=== PATIENT | female | born 1985 | race Caucasian/White ===

== ENCOUNTER → 2016-09-11 | Outpatient (REF) | payer OTHER ==
[~2016-09-11] MED LIST: /CIPR75TA PO; ACET65TA PO; ALIG4CAP PO; BIOFTAB PO; ENTO3CAP5 PO; FLAG500T PO; HAIRTAB5 PO; KLOR1TAB69 PO; MOBI15TA PO; MULTIVIT PO; POTA25TA4 PO; PROZ10CA OR; SING10TA32 PO; VICO5TAB PO; WELL75TA PO; ZOFR20TA PO; [UNRECOGNIZED DRUG - OTHER] PO
== END | disposition home or self-care (01) ==
LOC: M LAB REF 15:57
PROVIDERS: ATTEND Nurse Practitioner Family
DX: J02.9 Acute pharyngitis, unspecified (principal)

== ENCOUNTER 2016-12-23 15:50 | Emergency (ER) | payer OTHER ==
[~2016-12-23] VITALS: Ht 165.1 cm; Wt 72.6 kg
[2016-12-23] MEDS ORDERED: MAXA5TAB10 PO (16:20)
[2016-12-23] MEDS ORDERED: RANI15TA PO (16:20)
[2016-12-23] MEDS ORDERED: XANA0.25 PO (16:20)
[2016-12-23] MEDS ORDERED: KETOROLAC 30 MG/ML VIAL (J1885) IV ONE (17:00)
[2016-12-23] MEDS ORDERED: ONDANSETRON 4MG/2ML VIAL (J2405) IV ONE (17:00)
[2016-12-23] MEDS ORDERED: NS 1,000 ML IV ONE (17:00)
[2016-12-23 17:39] LABS: BASO % 0.5 % (0.0-1.0); EOS % 0.6 % (0.0-3.0); LARGE UNSTAINED CELL # 0.1 K/mm3 (0.0-0.4); LARGE UNSTAINED CELL % 1.3 % (0.0-4.0); LYMPH # 1.9 K/mm3 (1.5-4.5); LYMPH % 18.7 % (24.0-44.0); MEAN CORPUSCULAR HEMOGLOBIN 30.3 pg (27.0-33.0); MEAN CORPUSCULAR HGB CONC 34.1 g/dl (32.0-36.5); MEAN CORPUSCULAR VOLUME 88.7 fl (80.0-96.0); MONO # 0.5 K/mm3 (0.0-0.8); NEUTROPHILS # 7.1 K/mm3 (1.8-7.7); PLATELET COUNT, AUTOMATED 404 k/mm3 (150-450); WHITE BLOOD COUNT 9.6 K/mm3 (4.0-10.0)
[2016-12-23 17:59] LABS: CONTROL LINE HCG INT CTR LINE PRESENT
[2016-12-23 18:08] LABS: ALBUMIN 4.4 GM/DL (3.2-5.2); ALBUMIN/GLOBULIN RATIO 1.07 (1.00-1.93); ALKALINE PHOSPHATASE 47 U/L (45-117); ALT/SGPT 38 U/L (12-78); ANION GAP 10 MEQ/L (8-16); AST/SGOT 23 U/L (15-37); BILIRUBIN,DIRECT < 0.1 MG/DL (0.0-0.2); BILIRUBIN,TOTAL 0.5 MG/DL (0.2-1.0); BLOOD UREA NITROGEN 18 MG/DL (7-18); CALCIUM LEVEL 9.4 MG/DL (8.5-10.1); CARBON DIOXIDE LEVEL 25 MEQ/L (21-32); CHLORIDE LEVEL 104 MEQ/L (98-107); CREATININE FOR GFR 1.17 MG/DL (0.55-1.02); GLOMERULAR FILTRATION RATE 57.1 (>60); GLUCOSE, FASTING 83 MG/DL (70-105); POTASSIUM SERUM 4.2 MEQ/L (3.5-5.1); SODIUM LEVEL 139 MEQ/L (136-145); TOTAL PROTEIN 8.5 GM/DL (6.4-8.2)
[2016-12-23] MEDS ORDERED: ZOFR20TA PO (18:41)
[2016-12-23 19:03] VITALS: BP 117/71
== END 2016-12-23 19:23 | disposition home or self-care (01) ==
LOC: M ED 19:14
DX: R11.2 Nausea with vomiting, unspecified (principal); R19.7 Diarrhea, unspecified; F41.9 Anxiety disorder, unspecified; K21.9 Gastro-esophageal reflux disease without esophagitis; Z79.899 Other long term (current) drug therapy
CPT/HCPCS: 80048; 80076; 83690; 84703; 85025; 96361; 96374; 96375; 99283; J1885; J2405

== ENCOUNTER → 2017-06-14 | Outpatient (CLI) | payer OTHER ==
[~2017-06-14] MED LIST changes: +MAXA5TAB10 PO; +RANI15TA PO; +XANA0.25 PO
--- NOTE | 2017-06-14 14:16 | REP ---
Clinical: Trauma. Technique: AP, lateral, bilateral oblique views of the right foot. Findings: No obvious acute fracture dislocation. Skeletal structures, joint spaces, and surrounding soft tissues are relatively normal for age. No subcutaneous emphysema or radiodense foreign body. Impression: No obvious acute fracture or dislocation. Signed by Blair Child MD 06/14/2017 02:07 P
== END ==
LOC: M ADAMS 13:56
PROVIDERS: ATTEND Physician Assistant
DX: S90.31XA Contusion of right foot, initial encounter (principal); X58.XXXA Exposure to other specified factors, initial encounter; Y92.89 Other specified places as the place of occurrence of the external cause; Y99.9 Unspecified external cause status; Y93.9 Activity, unspecified

== ENCOUNTER → 2017-08-30 | Outpatient (REF) | payer OTHER ==
[2017-08-30 20:56] LABS: BASO # 0.1 10^3/uL (0.0-0.2); BASO % 0.9 % (0.0-1.0); EOS # 0.3 10^3/uL (0.0-0.50); EOS % 2.3 % (0.0-3.0); HEMATOCRIT 40.8 % (36.0-47.0); HEMOGLOBIN 13.3 g/dl (12.0-16.0); IMMATURE GRANULOCYTE % 0.3 % (0-0); LYMPH # 3.1 10^3/uL (1.5-4.5); LYMPH % 27.5 % (24.0-44.0); MEAN CORPUSCULAR HGB CONC 32.6 g/dl (32.0-36.5); MEAN CORPUSCULAR VOLUME 88.9 fl (80.0-96.0); MONO # 0.7 10^3/uL (0.0-0.8); MONO % 6.2 % (0.0-5.0); NEUTROPHILS # 7.2 10^3/uL (1.8-7.7); NEUTROPHILS % 62.8 % (36.0-66.0); PLATELET COUNT, AUTOMATED 411 10^3/uL (150-450); RED BLOOD COUNT 4.59 10^6/uL (4.00-5.40); RED CELL DISTRIBUTION WIDTH 13.2 % (11.5-14.5); WHITE BLOOD COUNT 11.4 10^3/uL (4.0-10.0)
[2017-08-30 21:22] LABS: ALBUMIN 4.4 GM/DL (3.2-5.2); ALBUMIN/GLOBULIN RATIO 1.16 (1.00-1.93); ALKALINE PHOSPHATASE 57 U/L (45-117); ALT/SGPT 119 U/L (12-78); ANION GAP 9 MEQ/L (8-16); AST/SGOT 43 U/L (7-37); BILIRUBIN,TOTAL 0.3 MG/DL (0.2-1.0); BLOOD UREA NITROGEN 12 MG/DL (7-18); CALCIUM LEVEL 9.2 MG/DL (8.5-10.1); CARBON DIOXIDE LEVEL 27 MEQ/L (21-32); CHLORIDE LEVEL 106 MEQ/L (98-107); CREATININE FOR GFR 0.84 MG/DL (0.55-1.30); GLOMERULAR FILTRATION RATE > 60.0 (>60); GLUCOSE, FASTING 85 MG/DL (70-100); POTASSIUM SERUM 3.9 MEQ/L (3.5-5.1); SODIUM LEVEL 142 MEQ/L (136-145); TOTAL PROTEIN 8.2 GM/DL (6.4-8.2)
== END ==
LOC: M LABDRWAD 10:15
DX: R10.32 Left lower quadrant pain (principal)

== ENCOUNTER → 2017-08-31 | Outpatient (REF) | payer OTHER ==
[2017-08-31 18:07] LABS: AMYLASE 60 U/L (25-115); LIPASE 252 U/L (73-393)
[2017-09-01 11:13] LABS: HEPATITIS B SURFACE ANTIGEN NEGATIVE (NEGATIVE)
[2017-09-01 11:38] LABS: HEPATITIS B CORE ANTIBODY IGM NEGATIVE (NEGATIVE)
[2017-09-01 11:40] LABS: HEPATITIS A ANTIBODY IGM NEGATIVE (NEGATIVE)
== END ==
LOC: M LAB REF 16:46
DX: R10.9 Unspecified abdominal pain (principal); R74.8 Abnormal levels of other serum enzymes

== ENCOUNTER 2018-01-14 16:29 | Inpatient (IN) | payer OTHER ==
[2018-01-14 16:56] LABS: BASO # 0.1 10^3/uL (0.0-0.2); BASO % 0.6 % (0.0-1.0); EOS # 0.3 10^3/uL (0.0-0.50); EOS % 2.9 % (0.0-3.0); HEMATOCRIT 41.3 % (36.0-47.0); HEMOGLOBIN 13.5 g/dl (12.0-15.5); IMMATURE GRANULOCYTE % 0.2 % (0-3.0); LYMPH # 2.7 10^3/uL (1.5-4.5); LYMPH % 23.2 % (24.0-44.0); MEAN CORPUSCULAR HGB CONC 32.7 g/dl (32.0-36.5); MEAN CORPUSCULAR VOLUME 85.5 fl (80.0-96.0); MONO # 0.7 10^3/uL (0.0-0.8); MONO % 6.4 % (0.0-5.0); NEUTROPHILS # 7.7 10^3/uL (1.8-7.7); NEUTROPHILS % 66.7 % (36.0-66.0); PLATELET COUNT, AUTOMATED 412 10^3/uL (150-450); RED BLOOD COUNT 4.83 10^6/uL (4.00-5.40); RED CELL DISTRIBUTION WIDTH 13.2 % (11.5-14.5); WHITE BLOOD COUNT 11.5 10^3/uL (4.0-10.0)
[2018-01-14 17:10] LABS: CONTROL LINE HCG INT CTR LINE PRESENT; HCG, SERUM QUALITATIVE NEGATIVE (NEGATIVE)
[2018-01-14 17:23] LABS: AMPHETAMINES LEVEL URINE NEGATIVE (NEGATIVE); BARBITURATES URINE NEGATIVE (NEGATIVE); BENZODIAZEPINES URINE POSITIVE (NEGATIVE); CANNABINOIDS URINE NEGATIVE (NEGATIVE); COCAINE METABOLITE URINE NEGATIVE (NEGATIVE); METHADONE URINE NEGATIVE (NEGATIVE); OPIATES URINE NEGATIVE (NEGATIVE); PHENCYCLIDINE URINE NEGATIVE (NEGATIVE)
[2018-01-14 17:24] LABS: ALBUMIN 4.3 GM/DL (3.2-5.2); ALKALINE PHOSPHATASE 57 U/L (45-117); ALT/SGPT 28 U/L (12-78); ANION GAP 9 MEQ/L (8-16); AST/SGOT 15 U/L (7-37); BILIRUBIN,DIRECT < 0.1 MG/DL (0.0-0.2); BILIRUBIN,TOTAL 0.2 MG/DL (0.2-1.0); BLOOD UREA NITROGEN 15 MG/DL (7-18); CALCIUM LEVEL 9.6 MG/DL (8.5-10.1); CARBON DIOXIDE LEVEL 25 MEQ/L (21-32); CHLORIDE LEVEL 106 MEQ/L (98-107); CPK CREATINE PHOSPHOKINASE 91 U/L (26-192); CREATININE FOR GFR 1.03 MG/DL (0.55-1.30); ETHYL ALCOHOL (ETHANOL) < 0.003 % (0.000-0.010); GLOMERULAR FILTRATION RATE > 60.0 (>60); GLUCOSE, FASTING 89 MG/DL (70-100); POTASSIUM SERUM 3.8 MEQ/L (3.5-5.1); SALICYLATE LEVEL 2.7 MG/DL (5.0-30.0); SODIUM LEVEL 140 MEQ/L (136-145); TOTAL PROTEIN 8.6 GM/DL (6.4-8.2)
[2018-01-14 17:25] LABS: ACETAMINOPHEN LEVEL < 2.0 UG/ML (10.0-30.0)
[2018-01-14] MEDS: NS 1,000 ML IV (17:30)
[2018-01-15] MEDS ORDERED: MAALOX 30 ML SUSP *UDC PO (00:45)
[2018-01-15] MEDS ORDERED: MOM 30ML SUSPENSION UDC PO (00:45)
[2018-01-15] MEDS: NICOTINE 7 MG/24 HR TRANSDERMAL TD (08:56)
[2018-01-16] MEDS: NICOTINE 7 MG/24 HR TRANSDERMAL TD (09:44)
[2018-01-16] MEDS: SERTRALINE HCL 50 MG TAB PO (11:19)
[2018-01-16 11:28] LABS: BEDSIDE GLUCOSE 90 MG/DL (70-105)
[2018-01-16] MEDS: traZODone 50 MG TAB PO (21:21)
[2018-01-17] MEDS: SERTRALINE HCL 50 MG TAB PO (08:00)
[2018-01-17] MEDS: NICOTINE 7 MG/24 HR TRANSDERMAL TD (08:00)
[2018-01-17] MEDS: ACETAMINOPHEN TAB 650MG DOSE (2X325MG) PO (12:07)
[2018-01-17] MEDS: traZODone 50 MG TAB PO (21:08)
[2018-01-18] MEDS: ACETAMINOPHEN TAB 650MG DOSE (2X325MG) PO (07:03)
[2018-01-18 07:18] LABS: HEMATOCRIT 41.3 % (36.0-47.0); HEMOGLOBIN 13.9 g/dl (12.0-15.5); MEAN CORPUSCULAR HEMOGLOBIN 28.1 pg (27.0-33.0); MEAN CORPUSCULAR HGB CONC 33.7 g/dl (32.0-36.5); MEAN CORPUSCULAR VOLUME 83.4 fl (80.0-96.0); PLATELET COUNT, AUTOMATED 368 10^3/uL (150-450); RED BLOOD COUNT 4.95 10^6/uL (4.00-5.40); RED CELL DISTRIBUTION WIDTH 13.1 % (11.5-14.5); WHITE BLOOD COUNT 8.5 10^3/uL (4.0-10.0)
[2018-01-18] MEDS: SERTRALINE HCL 50 MG TAB PO (08:13)
[2018-01-18] MEDS: NICOTINE 7 MG/24 HR TRANSDERMAL TD (08:14)
== END 2018-01-18 12:15 | disposition home or self-care (01) | DRG 885 ==
LOC: M PSY 23:53 → M ED 16:29 → M ED INP 22:54
DX: F33.2 Major depressive disorder, recurrent severe without psychotic features (principal); N81.4 Uterovaginal prolapse, unspecified; T42.4X2A Poisoning by benzodiazepines, intentional self-harm, initial encounter; Y92.009 Unspecified place in unspecified non-institutional (private) residence as the place of occurrence of the external cause; F17.210 Nicotine dependence, cigarettes, uncomplicated; M51.26 Other intervertebral disc displacement, lumbar region; J30.9 Allergic rhinitis, unspecified; G43.909 Migraine, unspecified, not intractable, without status migrainosus; Z79.899 Other long term (current) drug therapy

== ENCOUNTER 2018-01-27 09:57 | Day surgery (SDC) | payer OTHER ==
[2018-01-27] MEDS ORDERED: LR 1,000 ML IV ×2 (10:00→18:45)
[2018-01-27 10:24] LABS: HEMATOCRIT 38.3 % (36.0-47.0); HEMOGLOBIN 12.8 g/dl (12.0-15.5); MEAN CORPUSCULAR HEMOGLOBIN 28.3 pg (27.0-33.0); MEAN CORPUSCULAR HGB CONC 33.4 g/dl (32.0-36.5); MEAN CORPUSCULAR VOLUME 84.7 fl (80.0-96.0); PLATELET COUNT, AUTOMATED 293 10^3/uL (150-450); RED BLOOD COUNT 4.52 10^6/uL (4.00-5.40); RED CELL DISTRIBUTION WIDTH 13.3 % (11.5-14.5); WHITE BLOOD COUNT 8.3 10^3/uL (4.0-10.0)
[2018-01-27 10:40] LABS: CONTROL LINE HCG INT CTR LINE PRESENT; HCG, SERUM QUALITATIVE NEGATIVE (NEGATIVE)
[2018-01-27] MEDS: PHENAZOPYRIDINE 100 MG TAB PO (13:15)
[2018-01-27] MEDS ORDERED: LIDOCAINE 2% INJ 100 MG/5 ML SDV (FOR ANES.) As Ordered (14:56)
[2018-01-27] MEDS ORDERED: fentaNYL 250 MCG/5 ML INJECTION (J3010) As Ordered (14:56)
[2018-01-27] MEDS ORDERED: MIDAZOLAM INJ 2 MG/2 ML VIAL (J2250) As Ordered (14:57)
[2018-01-27] MEDS ORDERED: dexameTHASONE 4 MG/ML 1ML VIAL (J1100) As Ordered (15:36)
[2018-01-27] MEDS ORDERED: PROPOFOL 200 MG/20 ML VIAL As Ordered (15:36)
[2018-01-27] MEDS ORDERED: ROCURONIUM BROMIDE 50 MG/5 ML VIAL As Ordered ×2 (15:36→17:24)
[2018-01-27] MEDS ORDERED: NEOSTIGMINE 10 MG/10 ML VIAL (J2710) As Ordered (17:46)
[2018-01-27] MEDS ORDERED: GLYCOPYRROLATE INJ 0.2 MG/ML 2 ML VIAL As Ordered (17:46)
[2018-01-27] MEDS: VASOPRESSIN INJ 20 UNITS/ML VIAL As Ordered (18:17)
[2018-01-27] MEDS ORDERED: METOCLOPRAMIDE INJ 10MG/2ML VIAL (J2765) IV (18:45)
[2018-01-27] MEDS ORDERED: fentaNYL 100 MCG/2 ML INJECTION (J3010) IV (18:45)
[2018-01-27] MEDS: MORPHINE 1MG/ML IN 0.9% NACL 100ML IV BAG IV (18:45)
[2018-01-27] MEDS ORDERED: IBUPROFEN 600 MG TAB PO (18:45)
[2018-01-27] MEDS ORDERED: NALBUPHINE HCL 10 MG/ML AMP (J2300) IV (18:45)
[2018-01-27] MEDS ORDERED: EPIDURAL/PCA KEYS XX (18:45)
[2018-01-27] MEDS ORDERED: PERCOCET 5MG/325MG TAB PO (18:45)
[2018-01-27] MEDS ORDERED: NALOXONE INJ 0.4 MG/1 ML VIAL (J2310) IV (18:45)
[2018-01-27] MEDS ORDERED: diphenhydrAMINE INJ 50MG/ML VIAL (J1200) IV (18:45)
[2018-01-27] MEDS: ONDANSETRON 4MG/2ML VIAL (J2405) IV (19:04)
[2018-01-28] MEDS ORDERED: UNRESOLVED CLARIFICATION ENTRY XX (00:01)
[2018-01-28] MEDS: LR 1,000 ML IV (01:06)
[2018-01-28 06:55] LABS: HEMATOCRIT 24.7 % (36.0-47.0); MEAN CORPUSCULAR HEMOGLOBIN 28.7 pg (27.0-33.0); MEAN CORPUSCULAR HGB CONC 33.2 g/dl (32.0-36.5); MEAN CORPUSCULAR VOLUME 86.4 fl (80.0-96.0); PLATELET COUNT, AUTOMATED 283 10^3/uL (150-450); RED BLOOD COUNT 2.86 10^6/uL (4.00-5.40); RED CELL DISTRIBUTION WIDTH 13.4 % (11.5-14.5); WHITE BLOOD COUNT 16.4 10^3/uL (4.0-10.0)
[2018-01-28 07:08] LABS: HEMOGLOBIN 8.2 g/dl (12.0-15.5)
[2018-01-28] MEDS: NORCO, ANEXSIA 5/325MG TABLET (HYDROcodone/ACETAMINOPHEN) PO (07:33)
[2018-01-28] MEDS: MONTELUKAST 10 MG TAB PO (08:25)
[2018-01-28] MEDS: SERTRALINE HCL 50 MG TAB PO (08:25)
[2018-01-28] MEDS ORDERED: PROMETHAZINE 25 MG TAB PO (09:00)
== END 2018-01-28 11:05 | disposition home or self-care (01) ==
LOC: M SDC 09:57 → M MS5PR 19:35
DX: N93.9 Abnormal uterine and vaginal bleeding, unspecified (principal); R10.2 Pelvic and perineal pain; N81.4 Uterovaginal prolapse, unspecified; K51.90 Ulcerative colitis, unspecified, without complications; K21.9 Gastro-esophageal reflux disease without esophagitis; G43.909 Migraine, unspecified, not intractable, without status migrainosus; R32 Unspecified urinary incontinence; K44.9 Diaphragmatic hernia without obstruction or gangrene; F41.9 Anxiety disorder, unspecified; Z79.899 Other long term (current) drug therapy; Z98.51 Tubal ligation status
CPT/HCPCS: 58260

== ENCOUNTER → 2018-06-28 | Outpatient (REF) | payer OTHER ==
[2018-06-28 19:57] LABS: BASO # 0.1 10^3/uL (0.0-0.2); BASO % 0.7 % (0.0-1.0); EOS # 0.2 10^3/uL (0.0-0.50); EOS % 2.6 % (0.0-3.0); HEMATOCRIT 41.1 % (36.0-47.0); HEMOGLOBIN 13.4 g/dl (12.0-15.5); IMMATURE GRANULOCYTE % 0.3 % (0-3.0); LYMPH % 33.1 % (24.0-44.0); MEAN CORPUSCULAR HEMOGLOBIN 27.7 pg (27.0-33.0); MEAN CORPUSCULAR HGB CONC 32.6 g/dl (32.0-36.5); MEAN CORPUSCULAR VOLUME 85.1 fl (80.0-96.0); MONO # 0.5 10^3/uL (0.0-0.8); MONO % 5.4 % (0.0-5.0); NEUTROPHILS # 5.2 10^3/uL (1.8-7.7); NEUTROPHILS % 57.9 % (36.0-66.0); PLATELET COUNT, AUTOMATED 395 10^3/uL (150-450); RED BLOOD COUNT 4.83 10^6/uL (4.00-5.40); RED CELL DISTRIBUTION WIDTH 16.3 % (11.5-14.5); WHITE BLOOD COUNT 8.9 10^3/uL (4.0-10.0)
[2018-06-28 20:36] LABS: ANION GAP 9 MEQ/L (8-16); BLOOD UREA NITROGEN 10 MG/DL (7-18); CARBON DIOXIDE LEVEL 25 MEQ/L (21-32); CHLORIDE LEVEL 107 MEQ/L (98-107); CREATININE FOR GFR 0.85 MG/DL (0.55-1.30); GLOMERULAR FILTRATION RATE > 60.0 (>60); GLUCOSE, FASTING 86 MG/DL (70-100); SODIUM LEVEL 141 MEQ/L (136-145)
== END ==
LOC: M LAB REF 19:29
DX: R10.9 Unspecified abdominal pain (principal)

== ENCOUNTER 2018-08-26 10:08 | Emergency (ER) | payer OTHER ==
[~2018-08-26] VITALS: Ht 165.1 cm; Wt 75.0 kg
[~2018-08-26 10:08] MED LIST changes: +MELO15TA28 PO; +MONT10TA2 PO; +MOTR200T44 PO; +MULT1TAB10 PO; +NORC1TAB4 PO; +ONDA4TAB5 PO; +PANT40TA3 PO; +PATIENT COMMENTS; +PROM25TA12 PO; +PROT20TA11 PO; -PROZ10CA OR; +PROZ10CA PO; +SERT50TA PO; +TRAZO50TA PO; +VITA100066 PO; -ZOFR20TA PO; +ZOFR4TAB16 PO
[2018-08-26] MEDS ORDERED: IBUPROFEN 800 MG TAB PO ONE (11:00)
--- NOTE | 2018-08-26 11:00 | REP ---
Right forearm: Two views. Tree: Pain after a fall. Findings: Views of the right forearm demonstrate normal bones, joints, and soft tissues. No fracture or subluxation is seen. Impression: Negative radiographs of the right forearm. Electronically Signed by Yazan Zendejas MD 08/26/2018 10:52 A
--- NOTE | 2018-08-26 11:01 | REP ---
Right shoulder series: Three views. History: Trauma. Findings: The right glenohumeral and acromioclavicular joints are normally aligned. No fracture or subluxation is seen. Periarticular soft tissues are unremarkable. Impression: Negative radiographs of the right shoulder. Electronically Signed by Yazan Zendejas MD 08/26/2018 10:53 A
[2018-08-26] MEDS ORDERED: IBUP-1022 PO (11:20)
[2018-08-26 11:21] VITALS: BP 115/70
== END 2018-08-26 11:26 | disposition home or self-care (01) ==
LOC: M ED 10:08
DX: S40.021A Contusion of right upper arm, initial encounter (principal); W00.9XXA Unspecified fall due to ice and snow, initial encounter; Y92.59 Other trade areas as the place of occurrence of the external cause; K21.9 Gastro-esophageal reflux disease without esophagitis; F41.9 Anxiety disorder, unspecified; F17.200 Nicotine dependence, unspecified, uncomplicated; Z79.899 Other long term (current) drug therapy

== ENCOUNTER → 2019-01-10 | Outpatient (REF) | payer OTHER ==
[~2019-01-10] MED LIST changes: +IBUP-1022 PO; -NORC1TAB4 PO; +NORC1TAB7 PO; +SERT-141 PO; -SERT50TA PO; +TRAZ1TAB10 PO; -TRAZO50TA PO
== END ==
LOC: M LAB REF 19:16
PROVIDERS: ATTEND Physician Assistant Medical
DX: J02.9 Acute pharyngitis, unspecified (principal)

== ENCOUNTER 2019-01-25 15:03 | Emergency (ER) | payer OTHER ==
[~2019-01-25] VITALS: Ht 165.1 cm; Wt 74.8 kg
[2019-01-25 15:34] LABS: BASO # 0.1 10^3/uL (0.0-0.2); BASO % 0.7 % (0.0-1.0); EOS # 0.1 10^3/uL (0.0-0.50); HEMATOCRIT 44.5 % (36.0-47.0); LYMPH % 28.8 % (24.0-44.0); MEAN CORPUSCULAR HEMOGLOBIN 29.9 pg (27.0-33.0); MEAN CORPUSCULAR HGB CONC 33.7 g/dl (32.0-36.5); MEAN CORPUSCULAR VOLUME 88.6 fl (80.0-96.0); MONO # 0.6 10^3/uL (0.0-0.8); MONO % 5.5 % (0.0-5.0); NEUTROPHILS # 6.5 10^3/uL (1.8-7.7); NEUTROPHILS % 63.7 % (36.0-66.0); PLATELET COUNT, AUTOMATED 458 10^3/uL (150-450); RED BLOOD COUNT 5.02 10^6/uL (4.00-5.40); WHITE BLOOD COUNT 10.2 10^3/uL (4.0-10.0)
[2019-01-25 16:02] LABS: ALBUMIN 4.5 GM/DL (3.2-5.2); ALT/SGPT 87 U/L (12-78); BILIRUBIN,DIRECT 0.2 MG/DL (0.0-0.2); BILIRUBIN,TOTAL 0.5 MG/DL (0.2-1.0); BLOOD UREA NITROGEN 17 MG/DL (7-18); CALCIUM LEVEL 9.8 MG/DL (8.5-10.1); CARBON DIOXIDE LEVEL 26 MEQ/L (21-32); CHLORIDE LEVEL 107 MEQ/L (98-107); CREATININE FOR GFR 1.07 MG/DL (0.55-1.30); GLOMERULAR FILTRATION RATE > 60.0 (>60); GLUCOSE, FASTING 92 MG/DL (70-100); LIPASE 215 U/L (73-393); POTASSIUM SERUM 4.2 MEQ/L (3.5-5.1); SODIUM LEVEL 141 MEQ/L (136-145); TOTAL PROTEIN 8.4 GM/DL (6.4-8.2)
[2019-01-25] MEDS ORDERED: ZOFR8TAB24 PO (17:42)
[2019-01-25] MEDS ORDERED: PRED20TA PO (17:42)
[2019-01-25] MEDS ORDERED: ONDANSETRON 4 MG ORAL DISINTEGRATING TAB (Q0162 PER 1MG) PO ONE (17:45)
[2019-01-25 18:01] VITALS: BP 117/80
== END 2019-01-25 18:09 | disposition home or self-care (01) ==
LOC: M ED 18:04
DX: K52.9 Noninfective gastroenteritis and colitis, unspecified (principal); R10.84 Generalized abdominal pain; R11.2 Nausea with vomiting, unspecified; R19.7 Diarrhea, unspecified; K21.9 Gastro-esophageal reflux disease without esophagitis; G43.909 Migraine, unspecified, not intractable, without status migrainosus; G47.9 Sleep disorder, unspecified; F41.9 Anxiety disorder, unspecified; Z72.0 Tobacco use; Z79.899 Other long term (current) drug therapy
CPT/HCPCS: 80048; 80076; 81001; 83690; 85025; 87086; 99283; Q0162

== ENCOUNTER → 2019-04-11 | Outpatient (REF) | payer OTHER ==
[~2019-04-11] MED LIST changes: +PRED20TA PO; +ZOFR8TAB24 PO
== END ==
LOC: M LAB REF 19:06
PROVIDERS: ATTEND Physician Assistant Medical
DX: N39.0 Urinary tract infection, site not specified (principal)

== ENCOUNTER → 2019-12-27 | Outpatient (REF) | payer OTHER ==
[~2019-12-27] MED LIST changes: -MONT10TA2 PO; +MONT10TA4 PO; +ONDA-83 PO; -ONDA4TAB5 PO
[2019-12-27 12:36] LABS: BASO # 0.1 10^3/uL (0.0-0.2); EOS # 0.2 10^3/uL (0.0-0.5); EOS % 2.8 % (0.0-3.0); HEMATOCRIT 43.7 % (36.0-47.0); HEMOGLOBIN 14.7 g/dl (12.0-15.5); LYMPH # 2.5 10^3/uL (1.5-5.0); LYMPH % 29.9 % (24.0-44.0); MEAN CORPUSCULAR HEMOGLOBIN 29.9 pg (27.0-33.0); MEAN CORPUSCULAR HGB CONC 33.6 g/dl (32.0-36.5); MONO # 0.5 10^3/uL (0.0-0.8); MONO % 6.5 % (0.0-5.0); NEUTROPHILS # 4.9 10^3/uL (1.5-8.5); NEUTROPHILS % 59.4 % (36.0-66.0); PLATELET COUNT, AUTOMATED 347 10^3/uL (150-450); RED BLOOD COUNT 4.91 10^6/uL (4.00-5.40); WHITE BLOOD COUNT 8.3 10^3/uL (4.0-10.0)
[2019-12-27 12:44] LABS: ALT/SGPT 32 U/L (12-78); BILIRUBIN,TOTAL 0.4 MG/DL (0.2-1.0); BLOOD UREA NITROGEN 14 MG/DL (7-18); CALCIUM LEVEL 9.3 MG/DL (8.5-10.1); CARBON DIOXIDE LEVEL 24 MEQ/L (21-32); CHLORIDE LEVEL 107 MEQ/L (98-107); CHOLESTEROL LEVEL 233 MG/DL (<200); CHOLESTEROL RISK RATIO 5.177 (<5); CREATININE FOR GFR 1.03 MG/DL (0.55-1.30); FREE T4 0.91 NG/DL (0.76-1.46); GLOMERULAR FILTRATION RATE > 60.0 (>60); GLUCOSE, FASTING 97 MG/DL (70-100); HDL CHOLESTEROL 45 MG/DL (>40); LDL CHOLESTEROL 152 MG/DL (<100); NON-HDL-C 188 MG/DL; POTASSIUM SERUM 4.5 MEQ/L (3.5-5.1); SODIUM LEVEL 139 MEQ/L (136-145); TOTAL PROTEIN 7.8 GM/DL (6.4-8.2); TRIGLYCERIDES LEVEL 179 MG/DL (<150)
== END ==
LOC: M SFHCADAM 08:48
PROVIDERS: ATTEND Family Medicine
DX: K51.919 Ulcerative colitis, unspecified with unspecified complications (principal); F32.9 Major depressive disorder, single episode, unspecified; R60.9 Edema, unspecified; E66.9 Obesity, unspecified

== ENCOUNTER → 2020-01-18 | Outpatient (REF) | payer OTHER | LOC: M LAB REF 12:18 | PROVIDERS: ATTEND Physician Assistant | DX: R50.9 Fever, unspecified (principal); Z20.828 Contact with and (suspected) exposure to other viral communicable diseases ==

== ENCOUNTER 2020-02-29 19:08 | Emergency (ER) | payer OTHER ==
[~2020-02-29 19:08] MED LIST changes: +PANT40TA29 PO; -PANT40TA3 PO
[2020-02-29] MEDS ORDERED: KETOROLAC 30 MG/ML 1ML VIAL ONE (20:32)
[2020-02-29] MEDS ORDERED: ONDANSETRON 4MG/2ML VIAL ONE (20:32)
[2020-02-29] MEDS ORDERED: ONDANSETRON 4MG/2ML VIAL As Ordered ONE (20:32)
[2020-02-29] MEDS ORDERED: KETOROLAC 30 MG/ML 1ML VIAL As Ordered ONE (20:33)
[2020-02-29] MEDS ORDERED: ISOVUE-370 76% 100ML VIAL As Ordered ONE (21:51)
[2020-02-29] MEDS ORDERED: MORPHINE 4 MG/ML 1ML VIAL/SYRINGE (J2270) As Ordered ONE (21:54)
[2020-02-29] MEDS ORDERED: MORPHINE 4 MG/ML 1ML VIAL/SYRINGE (J2270) ONE (21:54)
[2020-04-07 14:19] LABS: BASO # 0.1 10^3/uL (0.0-0.2); BASO % 0.7 % (0.0-1.0); EOS # 0.2 10^3/uL (0.0-0.5); EOS % 2.4 % (0.0-3.0); HEMATOCRIT 41.7 % (36.0-47.0); HEMOGLOBIN 13.9 g/dl (12.0-15.5); LYMPH % 33.9 % (24.0-44.0); MEAN CORPUSCULAR HEMOGLOBIN 29.5 pg (27.0-33.0); MEAN CORPUSCULAR HGB CONC 33.3 g/dl (32.0-36.5); MEAN CORPUSCULAR VOLUME 88.5 fl (80.0-96.0); MONO # 0.6 10^3/uL (0.0-0.8); MONO % 7.3 % (0.0-5.0); NEUTROPHILS # 4.9 10^3/uL (1.5-8.5); NEUTROPHILS % 55.1 % (36.0-66.0); PLATELET COUNT, AUTOMATED 363 10^3/uL (150-450); RED BLOOD COUNT 4.71 10^6/uL (4.00-5.40); WHITE BLOOD COUNT 8.8 10^3/uL (4.0-10.0)
[2020-05-10 11:50] LABS: ALT/SGPT 30 IU/L (0-32); BILIRUBIN,TOTAL 0.3 MG/DL (0.2-1.0); BLOOD UREA NITROGEN 19 MG/DL (7-18); CALCIUM LEVEL 8.7 MG/DL (8.5-10.1); CARBON DIOXIDE LEVEL 27 mmol/L (20-29); CHLORIDE LEVEL 110 MEQ/L (98-107); CREATININE FOR GFR 1.13 MG/DL (0.55-1.30); GLOMERULAR FILTRATION RATE 58.3 (>60); GLUCOSE, FASTING 83 MG/DL (70-100); POTASSIUM SERUM 3.9 MEQ/L (3.5-5.1); SODIUM LEVEL 142 MEQ/L (136-145)
[2020-05-10 11:51] LABS: ALBUMIN 3.9 GM/DL (3.2-5.2); BILIRUBIN,DIRECT < 0.1 MG/DL (0.0-0.2); LIPASE 205 U/L (73-393)
== END 2020-03-01 00:12 | disposition home or self-care (01) ==
LOC: M ED 19:08
DX: R10.31 Right lower quadrant pain (principal); R11.2 Nausea with vomiting, unspecified; R19.7 Diarrhea, unspecified; K21.9 Gastro-esophageal reflux disease without esophagitis; F17.210 Nicotine dependence, cigarettes, uncomplicated; Z79.899 Other long term (current) drug therapy
CPT/HCPCS: 74177; 80048; 80076; 83690; 85025; 96361; 96374; 96375; 99284; J1885; J2270; J2405; Q9967

== ENCOUNTER → 2020-05-21 | Outpatient (REF) | payer OTHER | LOC: M WUC 20:13 | PROVIDERS: ATTEND Physician Assistant | DX: N39.0 Urinary tract infection, site not specified (principal) ==

== ENCOUNTER → 2020-07-11 | Outpatient (CLI) | payer OTHER ==
[~2020-07-11] MED LIST changes: -MONT10TA4 PO; +MONT5TAB2 PO
== END ==
LOC: M LABSMTC 13:59
PROVIDERS: ATTEND Family Medicine
DX: Z20.828 Contact with and (suspected) exposure to other viral communicable diseases (principal)

== ENCOUNTER → 2020-09-03 | Outpatient (CLI) | payer OTHER | LOC: M LABSMTC 10:03 | PROVIDERS: ATTEND Family Medicine | DX: Z20.822 Contact with and (suspected) exposure to COVID-19 (principal) | CPT/HCPCS: C9803; U0003 ==

== ENCOUNTER → 2020-10-11 | Outpatient (REF) | payer OTHER ==
[~2020-10-11] MED LIST changes: +MONT10TA10 PO; -MONT5TAB2 PO
[2020-10-11 17:00] LABS: FREE T4 0.84 NG/DL (0.76-1.46); THYROID STIMULATING HORMONE 3.51 uIU/ML (0.358-3.740)
== END ==
LOC: M SFHCADAM 14:32
PROVIDERS: ATTEND Family Medicine
DX: R79.89 Other specified abnormal findings of blood chemistry (principal)

== ENCOUNTER → 2020-12-10 | Outpatient (CLI) | payer OTHER | LOC: M LABSMTC 13:01 | PROVIDERS: ATTEND Family Medicine | DX: Z20.822 Contact with and (suspected) exposure to COVID-19 (principal) | CPT/HCPCS: C9803; U0003 ==

== ENCOUNTER → 2021-03-12 | Outpatient (REF) | payer OTHER | LOC: M SFHCADAM 12:39 | PROVIDERS: ATTEND Family Medicine | DX: R30.0 Dysuria (principal) ==

== ENCOUNTER 2022-03-28 20:13 | Inpatient (IN) | payer OTHER ==
[~2022-03-28] VITALS: Ht 160 cm; Wt 79.1 kg
[~2022-03-28 20:13] MED LIST changes: -MONT10TA10 PO; +MONT10TA97 PO
[2022-03-28 21:01] LABS: BASO # 0.1 10^3/uL (0.0-0.2); BASO % 0.5 % (0.0-1.0); EOS # 0.1 10^3/uL (0.0-0.5); EOS % 0.3 % (0.0-3.0); HEMOGLOBIN 14.9 g/dl (12.0-15.5); LYMPH % 12.2 % (24.0-44.0); MEAN CORPUSCULAR HEMOGLOBIN 29.3 pg (27.0-33.0); MEAN CORPUSCULAR HGB CONC 33.1 g/dl (32.0-36.5); MEAN CORPUSCULAR VOLUME 88.6 fl (80.0-96.0); MONO # 0.8 10^3/uL (0.0-0.8); MONO % 4.6 % (2.0-8.0); NEUTROPHILS # 13.6 10^3/uL (1.5-8.5); PLATELET COUNT, AUTOMATED 472 10^3/uL (150-450); RED BLOOD COUNT 5.08 10^6/uL (4.00-5.40); WHITE BLOOD COUNT 16.5 10^3/uL (4.0-10.0)
[2022-03-28] MEDS ORDERED: MORPHINE 4 MG/ML 1ML VIAL/SYRINGE IV ONE ×2 (21:30→22:25)
[2022-03-28] MEDS ORDERED: ONDANSETRON 4MG 2ML VIAL IV ONE (21:30)
[2022-03-28 21:44] LABS: ALBUMIN 4.6 GM/DL (3.2-5.2); BILIRUBIN,DIRECT 0.2 MG/DL (0.0-0.2); BILIRUBIN,TOTAL 0.5 MG/DL (0.2-1.0); TOTAL PROTEIN 8.6 GM/DL (6.4-8.2)
[2022-03-28 21:50] LABS: AMORPHOUS SEDIMENT, URINE LARGE AMOUNT (NEGATIVE); BACTERIA, URINE NONE SEEN; HYALINE CAST, URINE NONE SEEN /lpf (0-1); RBC, URINE NONE SEEN /hpf (0-3); SQUAMOUS EPITHELIAL CELL URINE SMALL AMOUNT /hpf (SMALL AMT)
[2022-03-28] MEDS: GASTROGRAFIN SOLUTION 30ML PO SCH ×2 (21:56→22:30)
[2022-03-28] MEDS ORDERED: PROMETHAZINE 25MG/ML 1ML VIAL IV ONE (22:00)
[2022-03-28] MEDS ORDERED: ISOVUE-370 76% 100ML VIAL As Ordered ONE (22:39)
[2022-03-28] MEDS ORDERED: methylPREDNISolone 125MG 2ML VIAL IV ONE (23:45)
[2022-03-29] MEDS ORDERED: METOCLOPRAMIDE INJ 10MG/2ML VIAL (J2765 PER 1) IV ONE
[2022-03-29] MEDS ORDERED: MORPHINE 4 MG/ML 1ML VIAL/SYRINGE IV ONE (00:10)
[2022-03-29] MEDS ORDERED: PROP20TA72 PO (00:33)
[2022-03-29] MEDS ORDERED: TRAZ-252 PO (00:33)
[2022-03-29] MEDS ORDERED: MONT10TA97 PO (00:33)
[2022-03-29] MEDS ORDERED: ZOLO100T PO (00:33)
[2022-03-29] MEDS ORDERED: HOME MED LIST COMPLETE! XX SCH (00:35)
[2022-03-29 01:06] LABS: RSV AMPLIFICATION NEGATIVE (NEGATIVE)
[2022-03-29] MEDS ORDERED: MOM 30ML SUSPENSION UDC PO PRN (01:45)
[2022-03-29] MEDS ORDERED: PROMETHAZINE 25MG/ML 1ML VIAL IV PRN (02:00)
[2022-03-29 02:40] VITALS: BP 114/73
[2022-03-29] MEDS ORDERED: AMPICILLIN SOD/SULBACTAM SOD 3 GM in D5W MINI-BAG PLUS 100 ML IV SCH (03:00)
[2022-03-29] MEDS: ACETAMINOPHEN TAB 650MG DOSE (2X325MG) PO PRN (03:17)
[2022-03-29] MEDS: NS 1,000 ML IV SCH ×3 (03:18→20:20)
[2022-03-29 05:42] VITALS: BP 105/57
[2022-03-29] MEDS ORDERED: HEPARIN SOD (PORCINE) 5000UNITS/ML 1ML VIAL/SYRINGE SC SCH (06:00)
[2022-03-29] MEDS: MORPHINE 2 MG/ML 1ML VIAL IV PRN ×3 (06:13→13:56)
[2022-03-29 07:17] LABS: HEMATOCRIT 41.2 % (36.0-47.0); HEMOGLOBIN 13.5 g/dl (12.0-15.5); MEAN CORPUSCULAR HEMOGLOBIN 28.6 pg (27.0-33.0); MEAN CORPUSCULAR HGB CONC 32.8 g/dl (32.0-36.5); MEAN CORPUSCULAR VOLUME 87.3 fl (80.0-96.0); PLATELET COUNT, AUTOMATED 404 10^3/uL (150-450); RED BLOOD COUNT 4.72 10^6/uL (4.00-5.40); WHITE BLOOD COUNT 12.9 10^3/uL (4.0-10.0)
[2022-03-29 07:50] LABS: ALBUMIN 4.1 GM/DL (3.2-5.2); BILIRUBIN,TOTAL 0.4 MG/DL (0.2-1.0); CALCIUM LEVEL 9.8 MG/DL (8.5-10.1); CREATININE FOR GFR 1.1 MG/DL (0.55-1.30); GLOMERULAR FILTRATION RATE 59.5 (>60); POTASSIUM SERUM 4.5 MEQ/L (3.5-5.1); TOTAL PROTEIN 7.7 GM/DL (6.4-8.2)
[2022-03-29] MEDS: PROPRANOLOL 20 MG TAB PO SCH ×2 (08:41→20:19)
[2022-03-29] MEDS: PANTOPRAZOLE 40MG VIAL IV SCH (08:41)
[2022-03-29] MEDS: SERTRALINE 100 MG TAB PO SCH (08:41)
[2022-03-29] MEDS: LACTOBACILLUS ACIDOPHILUS CAP (BACID) PO SCH ×2 (08:49→18:12)
[2022-03-29] MEDS: metroNIDAZOLE 500 MG in IV 1 EA IV SCH ×2 (08:49→18:13)
[2022-03-29 08:55] LABS: INR 0.99; PROTHROMBIN TIME 13.5 SECONDS (12.7-14.5)
[2022-03-29 08:56] LABS: PARTIAL THROMBOPLASTIN TIME 29.4 SECONDS (25.9-37.0)
[2022-03-29] MEDS ORDERED: ONDANSETRON 4MG 2ML VIAL IV PRN (09:25)
[2022-03-29] MEDS ORDERED: KETOROLAC 30 MG/ML 1ML VIAL IV ONE (09:25)
[2022-03-29] MEDS: ENOXAPARIN 40MG/0.4ML SYRINGE (J1650 PER 10MG) SC SCH (10:54)
[2022-03-29] MEDS: CIPROFLOXACIN 400 MG in IV 1 EA IV SCH ×2 (11:32→21:42)
[2022-03-29 14:00] VITALS: BP 104/68
[2022-03-29] MEDS ORDERED: MORPHINE 2 MG/ML 1ML VIAL IV PRN ×2 (14:30)
[2022-03-29] MEDS: ONDANSETRON 4MG 2ML VIAL IV PRN ×2 (16:42→21:42)
[2022-03-29] MEDS: traZODone 25MG PER 1/2 TABLET PO SCH (20:17)
[2022-03-29] MEDS: MONTELUKAST 10 MG TAB PO SCH (20:19)
[2022-03-29 21:07] VITALS: BP 100/60
[2022-03-30] MEDS: metroNIDAZOLE 500 MG in IV 1 EA IV SCH ×3 (01:09→17:04)
[2022-03-30] MEDS: NS 1,000 ML IV SCH ×2 (01:09→10:06)
[2022-03-30 06:00] VITALS: BP 108/69
[2022-03-30 06:16] LABS: HEMATOCRIT 36.7 % (36.0-47.0); MEAN CORPUSCULAR HEMOGLOBIN 29.3 pg (27.0-33.0); MEAN CORPUSCULAR HGB CONC 32.7 g/dl (32.0-36.5); MEAN CORPUSCULAR VOLUME 89.5 fl (80.0-96.0); PLATELET COUNT, AUTOMATED 309 10^3/uL (150-450)
[2022-03-30 06:54] LABS: ALT/SGPT 59 U/L (12-78); BILIRUBIN,TOTAL 0.4 MG/DL (0.2-1.0); BLOOD UREA NITROGEN 14 MG/DL (7-18); CALCIUM LEVEL 8.4 MG/DL (8.5-10.1); CARBON DIOXIDE LEVEL 22 MEQ/L (21-32); CHLORIDE LEVEL 111 MEQ/L (98-107); CREATININE FOR GFR 0.95 MG/DL (0.55-1.30); GLOMERULAR FILTRATION RATE > 60.0 (>60); GLUCOSE, FASTING 92 MG/DL (70-100); POTASSIUM SERUM 3.7 MEQ/L (3.5-5.1); SODIUM LEVEL 139 MEQ/L (136-145); TOTAL PROTEIN 5.8 GM/DL (6.4-8.2)
[2022-03-30] MEDS: LACTOBACILLUS ACIDOPHILUS CAP (BACID) PO SCH ×2 (08:00→17:04)
[2022-03-30] MEDS: traMADol 50 MG TAB PO PRN ×2 (08:36→17:05)
[2022-03-30] MEDS: SERTRALINE 100 MG TAB PO SCH (08:36)
[2022-03-30] MEDS: PANTOPRAZOLE 40MG VIAL IV SCH (08:37)
[2022-03-30] MEDS: ENOXAPARIN 40MG/0.4ML SYRINGE (J1650 PER 10MG) SC SCH (08:37)
[2022-03-30 09:00] VITALS: BP 105/73
[2022-03-30] MEDS: PROPRANOLOL 20 MG TAB PO SCH ×2 (09:00→20:22)
[2022-03-30] MEDS: CIPROFLOXACIN 400 MG in IV 1 EA IV SCH ×2 (10:13→21:27)
[2022-03-30] MEDS: ACETAMINOPHEN TAB 650MG DOSE (2X325MG) PO PRN (13:13)
[2022-03-30 14:00] VITALS: BP 112/72
[2022-03-30] MEDS ORDERED: PERCOCET 5MG/325MG TAB PO ONE (14:45)
[2022-03-30 16:02] LABS: C REACTIVE PROTEIN QUANTITATIV < 0.30 MG/DL (0.00-0.30)
[2022-03-30 16:28] LABS: ERYTHROCYTE SEDIMENTATION RATE 8 mm/hr (0-20)
[2022-03-30] MEDS: MONTELUKAST 10 MG TAB PO SCH (20:21)
[2022-03-30] MEDS: traZODone 25MG PER 1/2 TABLET PO SCH (20:21)
[2022-03-30 20:22] VITALS: BP 118/78
[2022-03-30 21:14] VITALS: BP 116/77
[2022-03-30] MEDS ORDERED: MORPHINE 30 MG TAB **MSIR PO ONE (21:25)
[2022-03-31] MEDS: metroNIDAZOLE 500 MG in IV 1 EA IV SCH ×2 (01:57→08:17)
[2022-03-31] MEDS: traMADol 50 MG TAB PO PRN (01:57)
[2022-03-31 05:12] VITALS: BP 95/60
[2022-03-31 06:22] LABS: HEMATOCRIT 36.9 % (36.0-47.0); HEMOGLOBIN 12.2 g/dl (12.0-15.5); MEAN CORPUSCULAR HEMOGLOBIN 29.4 pg (27.0-33.0); MEAN CORPUSCULAR HGB CONC 33.1 g/dl (32.0-36.5); MEAN CORPUSCULAR VOLUME 88.9 fl (80.0-96.0); PLATELET COUNT, AUTOMATED 328 10^3/uL (150-450); RED BLOOD COUNT 4.15 10^6/uL (4.00-5.40); WHITE BLOOD COUNT 7.2 10^3/uL (4.0-10.0)
[2022-03-31 07:11] LABS: ALBUMIN 2.7 GM/DL (3.2-5.2); ALT/SGPT 39 U/L (12-78); BILIRUBIN,TOTAL 0.4 MG/DL (0.2-1.0); BLOOD UREA NITROGEN 12 MG/DL (7-18); CALCIUM LEVEL 8.5 MG/DL (8.5-10.1); CARBON DIOXIDE LEVEL 25 MEQ/L (21-32); CHLORIDE LEVEL 114 MEQ/L (98-107); CREATININE FOR GFR 1.06 MG/DL (0.55-1.30); GLOMERULAR FILTRATION RATE > 60.0 (>60); GLUCOSE, FASTING 88 MG/DL (70-100); SODIUM LEVEL 143 MEQ/L (136-145); TOTAL PROTEIN 5.5 GM/DL (6.4-8.2)
[2022-03-31] MEDS ORDERED: ACET1TAB55 PO (08:05)
[2022-03-31] MEDS ORDERED: RISATAB3 PO (08:05)
[2022-03-31] MEDS ORDERED: METR-265 PO (08:08)
[2022-03-31] MEDS ORDERED: CIPR-249 PO (08:08)
[2022-03-31] MEDS: PANTOPRAZOLE 40MG VIAL IV SCH (08:17)
[2022-03-31] MEDS: ENOXAPARIN 40MG/0.4ML SYRINGE (J1650 PER 10MG) SC SCH (08:17)
[2022-03-31] MEDS: SERTRALINE 100 MG TAB PO SCH (08:18)
[2022-03-31] MEDS: LACTOBACILLUS ACIDOPHILUS CAP (BACID) PO SCH (08:18)
[2022-03-31] MEDS: PROPRANOLOL 20 MG TAB PO SCH ×2 (08:19→08:31)
[2022-03-31] MEDS: ACETAMINOPHEN TAB 650MG DOSE (2X325MG) PO PRN (08:19)
[2022-03-31] MEDS: ONDANSETRON 4MG 2ML VIAL IV PRN (09:13)
[2022-03-31] MEDS ORDERED: ONDA4TAB6 PO (09:52)
[2022-03-31] MEDS: CIPROFLOXACIN 400 MG in IV 1 EA IV SCH (10:00)
== END 2022-03-31 10:50 | disposition home or self-care (01) | DRG 392 ==
LOC: M ED 20:13 → M ED INP 03-29 01:43 → ENRESERV 03-29 02:06 → M MSPAV 03-29 02:45
PROVIDERS: ADMIT Family Medicine; ATTEND Internal Medicine
DX: K52.9 Noninfective gastroenteritis and colitis, unspecified (principal); F32.A Depression, unspecified; G43.909 Migraine, unspecified, not intractable, without status migrainosus; M54.9 Dorsalgia, unspecified; Z90.49 Acquired absence of other specified parts of digestive tract; Z90.710 Acquired absence of both cervix and uterus; Z87.891 Personal history of nicotine dependence; Z79.899 Other long term (current) drug therapy

== ENCOUNTER 2022-10-27 13:32 | Emergency (ER) | payer OTHER ==
[~2022-10-27] VITALS: Ht 167.6 cm; Wt 77.0 kg
[~2022-10-27 13:32] MED LIST changes: +ACET1TAB55 PO; +CIPR-249 PO; +METR-265 PO; +MONT-5 PO; +ONDA4TAB6 PO; +PROP20TA72 PO; +RISATAB3 PO; -SING10TA32 PO; +TRAZ-252 PO; +ZOLO100T PO
[2022-10-27] MEDS ORDERED: SUMA50TA2 (13:40)
[2022-10-27] MEDS ORDERED: SYNT50TA (13:40)
[2022-10-27] MEDS ORDERED: PANT40TA29 (13:40)
[2022-10-27] MEDS ORDERED: TOPI-254 (13:40)
[2022-10-27] MEDS ORDERED: VENL37.598 (13:40)
[2022-10-27] MEDS ORDERED: PROM25TA12 (13:40)
[2022-10-27 14:27] LABS: BASO # 0.1 10^3/uL (0.0-0.2); BASO % 0.7 % (0.0-1.0); EOS # 0.1 10^3/uL (0.0-0.5); EOS % 1.6 % (0.0-3.0); HEMOGLOBIN 14.6 g/dl (12.0-15.5); LYMPH # 2.9 10^3/uL (1.5-5.0); LYMPH % 33.8 % (24.0-44.0); MEAN CORPUSCULAR HEMOGLOBIN 29.4 pg (27.0-33.0); MEAN CORPUSCULAR HGB CONC 33.2 g/dl (32.0-36.5); MEAN CORPUSCULAR VOLUME 88.5 fl (80.0-96.0); MONO # 0.5 10^3/uL (0.0-0.8); MONO % 5.4 % (2.0-8.0); NEUTROPHILS % 58.3 % (36.0-66.0); PLATELET COUNT, AUTOMATED 348 10^3/uL (150-450); RED BLOOD COUNT 4.97 10^6/uL (4.00-5.40); WHITE BLOOD COUNT 8.5 10^3/uL (4.0-10.0)
[2022-10-27 14:38] LABS: LIPASE 50 U/L (12-53)
[2022-10-27 14:41] LABS: ALBUMIN 4.1 G/DL (3.2-5.2); ALKALINE PHOSPHATASE 44 U/L (46-116); ALT/SGPT 29 U/L (7.0-40); AST/SGOT 17 U/L (<34); BILIRUBIN,DIRECT 0.1 MG/DL (<0.4); BILIRUBIN,TOTAL 0.4 MG/DL (0.3-1.2); BLOOD UREA NITROGEN 15 MG/DL (9-23); CALCIUM LEVEL 9.6 MG/DL (8.5-10.1); CARBON DIOXIDE LEVEL 20 MMOL/L (20-31); CHLORIDE LEVEL 111 MMOL/L (98-107); CREATININE FOR GFR 0.98 MG/DL (0.55-1.30); GLOMERULAR FILTRATION RATE > 60.0 (>60); GLUCOSE, FASTING 90 MG/DL (60-100); POTASSIUM SERUM 4.7 MMOL/L (3.5-5.1); SODIUM LEVEL 140 MMOL/L (136-145); TOTAL PROTEIN 7.7 G/DL (5.7-8.2)
[2022-10-27 15:13] LABS: HCG, SERUM QUALITATIVE NEGATIVE (NEGATIVE)
[2022-10-27] MEDS ORDERED: NORCO, ANEXSIA 5/325MG TABLET (HYDROcodone/ACETAMINOPHEN) PO ONE (15:45)
[2022-10-27] MEDS ORDERED: KETOROLAC 30 MG/ML 1ML VIAL IM ONE (15:50)
[2022-10-27 16:44] VITALS: BP 115/69
[2022-10-27] MEDS ORDERED: KETO10TAB PO (17:28)
== END 2022-10-27 17:34 | disposition home or self-care (01) ==
LOC: M ED 13:32
DX: N83.201 Unspecified ovarian cyst, right side (principal); G43.909 Migraine, unspecified, not intractable, without status migrainosus; F41.9 Anxiety disorder, unspecified; F32.A Depression, unspecified; K52.9 Noninfective gastroenteritis and colitis, unspecified; Z79.899 Other long term (current) drug therapy
CPT/HCPCS: 36415; 74018; 76830; 76856; 80048; 80076; 83690; 84703; 85025; 93976; 96372; 99283; J1885

== ENCOUNTER → 2024-03-02 | Outpatient (REF) | payer OTHER ==
[~2024-03-02] MED LIST changes: +KETO10TAB PO; +ONDA-282 PO; -ONDA4TAB6 PO; +PANT40TA29; +PROM25TA12; +SUMA50TA2; +SYNT50TA; +TOPI-21; +VENL37.598
[2024-03-02 12:46] LABS: APPEARANCE, URINE HAZY (CLEAR); BACTERIA, URINE AUTO NEGATIVE (NEGATIVE); BILIRUBIN, URINE AUTO NEGATIVE (NEGATIVE); BLOOD, URINE BLOOD NEGATIVE (NEGATIVE); COLOR, URINE YELLOW (YELLOW); GLUCOSE, URINE (UA) AUTO NEGATIVE (NEGATIVE); KETONE, URINE AUTO NEGATIVE (NEGATIVE); LEUKOCYTE ESTERASE, URINE AUTO NEGATIVE (NEGATIVE); MUCUS, URINE SMALL (NEGATIVE); NITRITE, URINE AUTO NEGATIVE (NEGATIVE); PROTEIN, URINE AUTO NEGATIVE (NEGATIVE); RBC, URINE AUTO 1 /HPF (0-3); SPECIFIC GRAVITY URINE AUTO 1.017 (1.002-1.035); SQUAMOUS EPITHELIAL CELL UR AU 2 /HPF (0-6); UROBILINOGEN, URINE AUTO 0.2 mg/dL (0.0-2.0); WBC, URINE AUTO 0 /HPF (0-3)
== END ==
LOC: M SMT 12:04
PROVIDERS: ATTEND Urology
DX: R35.0 Frequency of micturition (principal)

== ENCOUNTER → 2025-07-10 | Outpatient (CLI) | payer OTHER ==
[~2025-07-10] MED LIST changes: -ALIG4CAP PO; +ALIG4CAP3 PO; -IBUP-1022 PO; +IBUP600T42 PO
== END ==
LOC: M WHC 07:05
PROVIDERS: ATTEND Obstetrics & Gynecology
DX: N83.201 Unspecified ovarian cyst, right side (principal); Z90.79 Acquired absence of other genital organ(s)